=== PATIENT | female | born 1960 | race Caucasian/White ===

== ENCOUNTER → 2018-03-17 | Outpatient (CLI) | payer BC, OTHER ==
[2018-03-17 09:37] LABS: BASOPHILS % (AUTO) 0.4 % (0-1); EOSINOPHILS # (AUTO) 0.3 X10'3 (0-0.9); EOSINOPHILS % (AUTO) 4.3 % (0-6); HEMATOCRIT 40.5 % (35.0-45.0); HEMOGLOBIN 13.7 g/dl (12.0-16.0); LYMPHOCYTES # (AUTO) 2.1 X10'3 (1.1-4.8); LYMPHOCYTES % (AUTO) 29.5 % (21-51); MEAN CORPUSCULAR HEMOGLOBIN 30.6 PG (27.0-31.0); MEAN CORPUSCULAR VOLUME 90.1 FL (78-98); MEAN PLATELET VOLUME 6.5 FL (7.4-10.4); MONOCYTES # (AUTO) 0.5 X10'3 (0-0.9); MONOCYTES % (AUTO) 7.1 % (2-12); NEUTROPHILS # (AUTO) 4.1 X10'3 (1.8-7.7); NEUTROPHILS % (AUTO) 58.7 % (42-75); PLATELET COUNT 322 X10'3 (140-440); RED BLOOD COUNT 4.49 X10'6 (4.20-5.60); RED CELL DISTRIBUTION WIDTH 15.9 % (11.5-14.5)
[2018-03-17 10:10] LABS: ALANINE AMINOTRANSFERASE 53 U/L (12-78); ALBUMIN 3.6 G/DL (3.4-5.0); ALBUMIN/GLOBULIN RATIO 0.9 (1.1-1.5); ALKALINE PHOSPHATASE 83 IU/L (46-116); ANION GAP 8 (8-16); ASPARTATE AMINO TRANSFERASE 25 U/L (10-37); BILIRUBIN,TOTAL 0.3 MG/DL (0.1-1.0); BLOOD UREA NITROGEN 13 MG/DL (7-18); BUN/CREATININE RATIO 14.3 (6.6-38.0); CALCIUM 9.1 MG/DL (8.5-10.1); CHLORIDE 106 MMOL/L (99-107); CHOL/HDL RATIO 3.4 (0.00-4.99); CHOLESTEROL 259 MG/DL (0-200); CREATININE 0.91 MG/DL (0.40-0.90); GLUCOSE 99 MG/DL (70-104); HDL CHOLESTEROL 76 MG/DL (35-60); LDL CHOLESTEROL 158 MG/DL (50-100); POTASSIUM 4.4 MMOL/L (3.5-5.1); SODIUM 142 MMOL/L (135-145); TOTAL CARBON DIOXIDE 28.4 MMOL/L (24-32); TOTAL PROTEIN 7.4 G/DL (6.4-8.2); TRIGLYCERIDES 80 MG/DL (20-135); eGFR 64 ML/MIN
== END ==
LOC: LAB 09:10
PROVIDERS: ATTEND Family Medicine
DX: Z00.01 Encounter for general adult medical examination with abnormal findings (principal); R79.89 Other specified abnormal findings of blood chemistry
CPT/HCPCS: 36415; 80053; 80061; 84439; 84443; 85025

== ENCOUNTER 2018-03-23 09:20 | Day surgery (SDC) | payer BC ==
[~2018-03-23] VITALS: Ht 167.6 cm; Wt 68.2 kg
[2018-03-23 09:30] VITALS: BP 124/82
[2018-03-23] MEDS ORDERED: BLOO-292 PO (09:55)
[2018-03-23] MEDS ORDERED: PRESTIGE PO (10:14)
[2018-03-23] MEDS ORDERED: DESV100T4 PO (10:18)
[2018-03-23] MEDS ORDERED: fentaNYL/PF 50MCG/1 ML 2ML syringe ONE (10:37)
[2018-03-23] MEDS ORDERED: MIDAZolam 5mg/5ml vial ONE (10:38)
[2018-03-23 11:06] VITALS: BP 94/62
[2018-03-23 11:15] VITALS: BP 95/63
[2018-03-23 11:25] VITALS: BP 100/61
[2018-03-23 11:35] VITALS: BP 95/60
== END 2018-03-23 11:45 | disposition home or self-care (01) ==
LOC: GI LAB 09:20
PROVIDERS: ATTEND Internal Medicine Gastroenterology
DX: Z12.11 Encounter for screening for malignant neoplasm of colon (principal); Z80.0 Family history of malignant neoplasm of digestive organs; Z98.51 Tubal ligation status; Z98.890 Other specified postprocedural states; Z79.899 Other long term (current) drug therapy
CPT/HCPCS: 45378; 99152; 99153; J2250; J3010; J7030; A4620; G0500

== ENCOUNTER → 2019-04-20 | Outpatient (CLI) | payer BC, OTHER ==
[~2019-04-20] MED LIST: DESV100T4 PO
[2019-04-20 13:43] LABS: ALANINE AMINOTRANSFERASE 28 U/L (12-78); ALBUMIN 4.1 G/DL (3.4-5.0); ALBUMIN/GLOBULIN RATIO 1.1 (1.1-1.5); ALKALINE PHOSPHATASE 92 IU/L (46-116); ANION GAP 17 (8-16); ASPARTATE AMINO TRANSFERASE 21 U/L (10-37); BILIRUBIN,TOTAL 0.5 MG/DL (0.1-1.0); BLOOD UREA NITROGEN 14 MG/DL (7-18); BUN/CREATININE RATIO 15.2 (6.6-38.0); CALCIUM 9.9 MG/DL (8.5-10.1); CHLORIDE 99 MMOL/L (99-107); CREATININE 0.92 MG/DL (0.40-0.90); GLUCOSE 64 MG/DL (70-104); POTASSIUM 3.9 MMOL/L (3.5-5.1); SODIUM 135 MMOL/L (135-145); TOTAL CARBON DIOXIDE 18.9 MMOL/L (24-32); eGFR 63 ML/MIN
[2019-04-23 05:30] LABS: VITAMIN D, 25-HYDROXY 27.8 ng/mL (30.0-100.0)
== END | disposition home or self-care (01) ==
LOC: LAB 12:06
PROVIDERS: ATTEND Family Medicine
DX: Z00.00 Encounter for general adult medical examination without abnormal findings (principal)
CPT/HCPCS: 36415; 80053; 82306; 82607; 82746; 84439; 84443

== ENCOUNTER 2019-11-02 10:31 | Outpatient (CLI) | payer OTHER ==
[2019-11-02 11:41] LABS: BASOPHILS # (AUTO) 0.1 X10'3 (0-0.2); BASOPHILS % (AUTO) 0.7 % (0-1); EOSINOPHILS # (AUTO) 0.2 X10'3 (0-0.9); EOSINOPHILS % (AUTO) 2.4 % (0-6); HEMATOCRIT 40.8 % (35.0-45.0); HEMOGLOBIN 13.9 g/dl (12.0-16.0); LYMPHOCYTES % (AUTO) 24.5 % (21-51); MEAN CORPUSCULAR HEMOGLOBIN 31.9 PG (27.0-31.0); MEAN CORPUSCULAR HGB CONC 34.1 g/dL (33.0-36.5); MEAN CORPUSCULAR VOLUME 93.4 FL (78-98); MEAN PLATELET VOLUME 6.8 FL (7.4-10.4); MONOCYTES # (AUTO) 0.5 X10'3 (0-0.9); MONOCYTES % (AUTO) 6.5 % (2-12); NEUTROPHILS # (AUTO) 5.4 X10'3 (1.8-7.7); NEUTROPHILS % (AUTO) 65.9 % (42-75); PLATELET COUNT 332 X10'3 (140-440); RED BLOOD COUNT 4.37 X10'6 (4.20-5.60); RED CELL DISTRIBUTION WIDTH 13.4 % (11.5-14.5); WHITE BLOOD COUNT 8.1 X10'3 (4.5-11.0)
[2019-11-02 12:10] LABS: ALANINE AMINOTRANSFERASE 29 U/L (12-78); ALBUMIN 3.6 G/DL (3.4-5.0); ALBUMIN/GLOBULIN RATIO 0.9 (1.1-1.5); ALKALINE PHOSPHATASE 90 IU/L (46-116); ANION GAP 9 (8-16); ASPARTATE AMINO TRANSFERASE 22 U/L (10-37); BILIRUBIN,TOTAL 0.4 MG/DL (0.1-1.0); BLOOD UREA NITROGEN 19 MG/DL (7-18); BUN/CREATININE RATIO 21.8 (6.6-38.0); CHLORIDE 102 MMOL/L (99-107); CHOLESTEROL 239 MG/DL (0-200); CREATININE 0.87 MG/DL (0.40-0.90); GLUCOSE 92 MG/DL (70-104); HDL CHOLESTEROL 79 MG/DL (35-60); LDL CHOLESTEROL 153 MG/DL (50-100); POTASSIUM 3.9 MMOL/L (3.5-5.1); SODIUM 137 MMOL/L (135-145); TOTAL CARBON DIOXIDE 26.1 MMOL/L (24-32); TOTAL PROTEIN 7.7 G/DL (6.4-8.2); TRIGLYCERIDES 75 MG/DL (20-135); eGFR 67 ML/MIN
[2019-11-02 12:30] LABS: CLARITY,URINE CLOUDY (Clear); COLOR,URINE YELLOW (Yellow); GLUCOSE, URINE NEGATIVE (Neg); KETONES,URINE NEGATIVE (Neg); LEUKOCYTE ESTERASE ,URINE LARGE (Neg); NITRITES, URINE NEGATIVE (Neg); OCCULT BLOOD,URINE LARGE (Neg); PROTEIN,URINE 100 mg/dl (Neg); UROBILINOGEN,URINE 0.2 E.U/dL (0.2-1.0)
[2019-11-02 12:45] LABS: UA COLLECTION TYPE NON-SPECIFIED
[2019-11-02 12:46] LABS: BACTERIA,URINE 1+ /HPF (Neg); WBC,URINE TNTC /HPF (0-4)
[2019-11-02 12:47] LABS: MUCUS STRANDS NONE SEEN /LPF (Neg); SQUAMOUS EPITHELIAL CELL,UR FEW /LPF (FEW); WBC CLUMPS,URINE MANY /HPF (NEGATIVE)
[2019-11-03 08:09] LABS: THYROXINE (T4) 5.9 ug/dL (4.5-12.0); VITAMIN D, 25-HYDROXY 21.8 ng/mL (30.0-100.0)
== END 2019-11-02 23:59 | disposition home or self-care (01) ==
LOC: LAB 10:31
PROVIDERS: ATTEND Family Medicine
DX: L65.9 Nonscarring hair loss, unspecified (principal)
CPT/HCPCS: 36415; 80053; 80061; 81001; 82306; 82607; 82746; 84436; 84443; 85025; 87077; 87088; 87186

== ENCOUNTER 2019-12-28 11:34 | Outpatient (CLI) | payer OTHER ==
[2019-12-28 12:52] LABS: BASOPHILS % (AUTO) 0.3 % (0-1); EOSINOPHILS # (AUTO) 1.5 X10'3 (0-0.9); EOSINOPHILS % (AUTO) 10.6 % (0-6); HEMATOCRIT 40.6 % (35.0-45.0); HEMOGLOBIN 13.6 g/dl (12.0-16.0); LYMPHOCYTES # (AUTO) 0.9 X10'3 (1.1-4.8); LYMPHOCYTES % (AUTO) 6.3 % (21-51); MEAN CORPUSCULAR HEMOGLOBIN 30.5 PG (27.0-31.0); MEAN CORPUSCULAR HGB CONC 33.4 g/dL (33.0-36.5); MEAN CORPUSCULAR VOLUME 91.4 FL (78-98); MEAN PLATELET VOLUME 7.1 FL (7.4-10.4); MONOCYTES # (AUTO) 0.7 X10'3 (0-0.9); MONOCYTES % (AUTO) 5.2 % (2-12); NEUTROPHILS # (AUTO) 10.9 X10'3 (1.8-7.7); NEUTROPHILS % (AUTO) 77.6 % (42-75); PLATELET COUNT 342 X10'3 (140-440); RED BLOOD COUNT 4.44 X10'6 (4.20-5.60); RED CELL DISTRIBUTION WIDTH 14.1 % (11.5-14.5)
== END 2019-12-28 23:59 | disposition home or self-care (01) ==
LOC: LAB 11:34
PROVIDERS: ATTEND Family Medicine
DX: N39.0 Urinary tract infection, site not specified (principal)
CPT/HCPCS: 36415; 85025

== ENCOUNTER 2020-05-07 03:13 | Emergency (ER) | payer OTHER ==
[~2020-05-07] VITALS: Ht 167.6 cm; Wt 82.0 kg
[2020-05-07 03:22] VITALS: BP 147/84
[2020-05-07 03:27] LABS: CLARITY,URINE CLOUDY (Clear); COLOR,URINE YELLOW (Yellow); GLUCOSE, URINE NEGATIVE (Neg); KETONES,URINE NEGATIVE (Neg); LEUKOCYTE ESTERASE ,URINE MODERATE (Neg); NITRITES, URINE NEGATIVE (Neg); OCCULT BLOOD,URINE LARGE (Neg); PROTEIN,URINE 30 mg/dl (Neg); UROBILINOGEN,URINE 0.2 E.U/dL (0.2-1.0)
[2020-05-07 03:30] LABS: UA COLLECTION TYPE CLN CATCH MIDSTREAM
[2020-05-07] MEDS ORDERED: ciprofloxacin 250mg tablet PO ONE (03:30)
[2020-05-07 03:32] LABS: BACTERIA,URINE 4+ /HPF (Neg); RBC,URINE 20-50 /HPF (0-2); SQUAMOUS EPITHELIAL CELL,UR FEW /LPF (FEW); WBC,URINE TNTC /HPF (0-4)
[2020-05-07] MEDS ORDERED: CIPR-230 PO (03:33)
== END 2020-05-07 05:22 | disposition home or self-care (01) ==
LOC: ER 03:13
DX: N39.0 Urinary tract infection, site not specified (principal); R39.15 Urgency of urination; K21.9 Gastro-esophageal reflux disease without esophagitis; Z87.440 Personal history of urinary (tract) infections; Z79.2 Long term (current) use of antibiotics; Z79.899 Other long term (current) drug therapy
CPT/HCPCS: 81001; 87088; 99283

== ENCOUNTER 2020-08-20 17:31 | Emergency (ER) | payer BC ==
[~2020-08-20] VITALS: Ht 167.6 cm; Wt 84.1 kg
[2020-08-20 18:36] VITALS: BP 125/82
--- NOTE | 2020-08-20 18:44 | NUR ---
Chest x-ray completed. Swab for COVID will be collected as soon as ordered.
== END 2020-08-20 19:20 | disposition home or self-care (01) ==
LOC: ER 17:32
DX: R50.9 Fever, unspecified (principal); R05 Cough; J02.9 Acute pharyngitis, unspecified; Z20.828 Contact with and (suspected) exposure to other viral communicable diseases; K21.9 Gastro-esophageal reflux disease without esophagitis; Z87.440 Personal history of urinary (tract) infections; Z79.899 Other long term (current) drug therapy
CPT/HCPCS: 71045; 87635; 99284; C9803

== ENCOUNTER 2020-12-13 20:30 | Emergency (ER) | payer BC ==
[~2020-12-13] VITALS: Ht 167.6 cm; Wt 86.4 kg
[2020-12-13] MEDS ORDERED: iohexol 300mg/ml 100ml inj. ONE (20:56)
[2020-12-13] MEDS ORDERED: ondansetron 4mg rapidly disintigrating tab PO ONE (22:35)
[2020-12-14] MEDS ORDERED: HYDR-3965 PO ×2 (00:01→16:06)
[2020-12-14] MEDS ORDERED: ONDA4TAB6 PO ×2 (00:01→16:06)
[2020-12-14 00:23] VITALS: BP 136/75
== END 2020-12-14 00:25 | disposition home or self-care (01) ==
LOC: ER 20:31
DX: S22.080A Wedge compression fracture of T11-T12 vertebra, initial encounter for closed fracture (principal); R11.0 Nausea; R06.02 Shortness of breath; Z79.899 Other long term (current) drug therapy; W22.8XXA Striking against or struck by other objects, initial encounter; Y93.23 Activity, snow (alpine) (downhill) skiing, snowboarding, sledding, tobogganing and snow tubing; Y92.89 Other specified places as the place of occurrence of the external cause; Y99.8 Other external cause status
CPT/HCPCS: 71260; 74177; 99285; Q9967

== ENCOUNTER 2020-12-16 19:34 | Emergency (ER) | payer BC ==
[~2020-12-16] VITALS: Ht 167.6 cm; Wt 85.5 kg
[~2020-12-16 19:34] MED LIST changes: +HYDR-3965 PO; +ONDA4TAB6 PO
[2020-12-16 20:32] LABS: D-DIMER 2.29 MG/L FEU (0-0.50)
[2020-12-16] MEDS ORDERED: iohexol 350MG/ML 100ml bottle IV ONE (20:55)
--- NOTE | 2020-12-16 22:26 | NUR ---
dr villalba talking with pt about dc instructions. Pt is agreeable to DC.
[2020-12-16 22:27] VITALS: BP 116/87
== END 2020-12-16 22:33 | disposition home or self-care (01) ==
LOC: ER 19:35
DX: R07.89 Other chest pain (principal); R91.1 Solitary pulmonary nodule; J90 Pleural effusion, not elsewhere classified; Z79.899 Other long term (current) drug therapy
CPT/HCPCS: 36415; 71045; 71275; 85379; 93005; 99285; Q9967

== ENCOUNTER 2021-02-04 04:31 | Emergency (ER) | payer BC ==
[~2021-02-04] VITALS: Ht 167.6 cm; Wt 80.5 kg
[2021-02-04 04:33] VITALS: BP 130/86
[2021-02-04] MEDS ORDERED: ketorolac tromethamine 15mg/ml inj. IV ONE (04:40)
[2021-02-04] MEDS ORDERED: CefTRIAXone/D5W-Rocephin 1gm 50 ML IV ONE (04:40)
[2021-02-04] MEDS ORDERED: normal saline 1000ML IV soln IVB ONE (04:40)
[2021-02-04] MEDS ORDERED: DESV50TA9 PO (04:45)
[2021-02-04] MEDS ORDERED: NITR100C6 PO (04:45)
[2021-02-04] MEDS ORDERED: OMEP40CA13 PO (04:45)
[2021-02-04 05:33] LABS: CLARITY,URINE CLOUDY (Clear); COLOR,URINE ORANGE (Yellow); UA COLLECTION TYPE NON-SPECIFIED
[2021-02-04 05:33] LABS: BASOPHILS # (AUTO) 0.1 X10'3 (0-0.2); BASOPHILS % (AUTO) 0.4 % (0-1); EOSINOPHILS # (AUTO) 0.1 X10'3 (0-0.9); EOSINOPHILS % (AUTO) 0.6 % (0-6); HEMATOCRIT 40.2 % (35.0-45.0); HEMOGLOBIN 13.1 g/dl (12.0-16.0); LYMPHOCYTES # (AUTO) 0.8 X10'3 (1.1-4.8); MEAN CORPUSCULAR HEMOGLOBIN 29.5 PG (27.0-31.0); MEAN CORPUSCULAR HGB CONC 32.5 g/dL (33.0-36.5); MEAN CORPUSCULAR VOLUME 90.7 FL (78-98); MEAN PLATELET VOLUME 7.2 FL (7.4-10.4); MONOCYTES # (AUTO) 0.7 X10'3 (0-0.9); MONOCYTES % (AUTO) 4.1 % (2-12); NEUTROPHILS # (AUTO) 14.8 X10'3 (1.8-7.7); NEUTROPHILS % (AUTO) 89.9 % (42-75); PLATELET COUNT 407 X10'3 (140-440); RED BLOOD COUNT 4.43 X10'6 (4.20-5.60); WHITE BLOOD COUNT 16.4 X10'3 (4.5-11.0)
[2021-02-04 05:55] LABS: BACTERIA,URINE 1+ /HPF (Neg); RBC,URINE 0-2 /HPF (0-2); SQUAMOUS EPITHELIAL CELL,UR MANY /LPF (FEW); WBC,URINE 50-100 /HPF (0-4)
[2021-02-04 05:56] LABS: MUCUS STRANDS NONE SEEN /LPF (Neg)
[2021-02-04] MEDS ORDERED: CEPH250T PO (06:00)
[2021-02-04 06:21] LABS: ALANINE AMINOTRANSFERASE 31 U/L (12-78); ALBUMIN 3.6 G/DL (3.4-5.0); ALKALINE PHOSPHATASE 101 IU/L (46-116); ANION GAP 12 (8-16); ASPARTATE AMINO TRANSFERASE 18 U/L (10-37); BILIRUBIN,TOTAL 0.3 MG/DL (0.1-1.0); BLOOD UREA NITROGEN 17 MG/DL (7-18); BUN/CREATININE RATIO 17.9 (6.6-38.0); CALCIUM 8.9 MG/DL (8.5-10.1); CHLORIDE 104 MMOL/L (99-107); CREATININE 0.95 MG/DL (0.40-0.90); GLUCOSE 155 MG/DL (70-104); POTASSIUM 3.9 MMOL/L (3.5-5.1); SODIUM 141 MMOL/L (135-145); TOTAL CARBON DIOXIDE 25.2 MMOL/L (24-32); TOTAL PROTEIN 7.2 G/DL (6.4-8.2); eGFR 60 ML/MIN
== END 2021-02-04 06:40 | disposition home or self-care (01) ==
LOC: ER 04:32
DX: N39.0 Urinary tract infection, site not specified (principal); R30.9 Painful micturition, unspecified; R50.9 Fever, unspecified; M54.5 Low back pain; R31.9 Hematuria, unspecified; Z87.440 Personal history of urinary (tract) infections; Z79.899 Other long term (current) drug therapy
CPT/HCPCS: 36415; 80053; 81001; 83605; 84145; 85025; 87040; 96365; 96375; 99284; J0696; J1885; J7030

== ENCOUNTER 2021-02-04 16:05 | Inpatient (IN) | payer BC ==
[~2021-02-04] VITALS: Ht 167.6 cm; Wt 85.9 kg
[~2021-02-04 16:05] MED LIST changes: +CEPH250T PO; +DESV50TA9 PO; +NITR100C6 PO; +OMEP40CA13 PO
[2021-02-04] MEDS ORDERED: normal saline 1000ML IV soln IV ONE (16:35)
[2021-02-04] MEDS ORDERED: ketorolac tromethamine 15mg/ml inj. IV ONE (16:50)
[2021-02-04] MEDS ORDERED: acetaminophen 325mg tablet PO ONE (16:50)
[2021-02-04 17:08] LABS: URINE HCG NEGATIVE (NEG)
[2021-02-04 17:19] LABS: BASOPHILS % (AUTO) 0.1 % (0-1); EOSINOPHILS # (AUTO) 0.2 X10'3 (0-0.9); EOSINOPHILS % (AUTO) 1.7 % (0-6); HEMOGLOBIN 12.5 g/dl (12.0-16.0); LYMPHOCYTES # (AUTO) 0.5 X10'3 (1.1-4.8); LYMPHOCYTES % (AUTO) 3.4 % (21-51); MEAN CORPUSCULAR HEMOGLOBIN 29.7 PG (27.0-31.0); MEAN PLATELET VOLUME 6.8 FL (7.4-10.4); MONOCYTES # (AUTO) 0.4 X10'3 (0-0.9); MONOCYTES % (AUTO) 2.5 % (2-12); NEUTROPHILS # (AUTO) 13.3 X10'3 (1.8-7.7); NEUTROPHILS % (AUTO) 92.3 % (42-75); PLATELET COUNT 312 X10'3 (140-440); RED BLOOD COUNT 4.22 X10'6 (4.20-5.60); RED CELL DISTRIBUTION WIDTH 14.8 % (11.5-14.5); WHITE BLOOD COUNT 14.4 X10'3 (4.5-11.0)
[2021-02-04 17:27] LABS: ALANINE AMINOTRANSFERASE 32 U/L (12-78); ALKALINE PHOSPHATASE 105 IU/L (46-116); ANION GAP 11 (8-16); ASPARTATE AMINO TRANSFERASE 18 U/L (10-37); BILIRUBIN,TOTAL 0.6 MG/DL (0.1-1.0); BLOOD UREA NITROGEN 13 MG/DL (7-18); BUN/CREATININE RATIO 14.3 (6.6-38.0); CALCIUM 9.4 MG/DL (8.5-10.1); CHLORIDE 104 MMOL/L (99-107); CREATININE 0.91 MG/DL (0.40-0.90); GLUCOSE 125 MG/DL (70-104); MAGNESIUM 1.9 MG/DL (1.5-2.4); POTASSIUM 3.6 MMOL/L (3.5-5.1); SODIUM 140 MMOL/L (135-145); TOTAL CARBON DIOXIDE 25.1 MMOL/L (24-32); eGFR 63 ML/MIN
[2021-02-04 17:33] LABS: CLARITY,URINE SLIGHTLY CLOUDY (Clear); COLOR,URINE YELLOW (Yellow); GLUCOSE, URINE NEGATIVE (Neg); KETONES,URINE NEGATIVE (Neg); LEUKOCYTE ESTERASE ,URINE TRACE (Neg); NITRITES, URINE NEGATIVE (Neg); OCCULT BLOOD,URINE NEGATIVE (Neg); PROTEIN,URINE NEGATIVE (Neg); UROBILINOGEN,URINE 0.2 E.U/dL (0.2-1.0)
[2021-02-04 17:51] LABS: UA COLLECTION TYPE CLN CATCH MIDSTREAM
[2021-02-04 17:52] LABS: SQUAMOUS EPITHELIAL CELL,UR MANY /LPF (FEW)
[2021-02-04 17:53] LABS: BACTERIA,URINE FEW /HPF (Neg); RBC,URINE 0-2 /HPF (0-2); WBC,URINE 0-4 /HPF (0-4)
[2021-02-04] MEDS ORDERED: iohexol 350MG/ML 100ml bottle IV ONE (18:03)
[2021-02-04 20:47] LABS: GLUCOSE,CSF 72 MG/DL (40-75)
[2021-02-04 20:51] LABS: TOTAL PROTEIN,CSF 30 MG/DL (15-45)
[2021-02-04 20:53] LABS: APPEARANCE,CSF CLEAR; CSF SUPERNATANT COLOR COLORLESS; CSF VOLUME 6.5 ML; TUBE# COUNTED 1
[2021-02-04 20:54] LABS: CSF RBC 3 /CU MM (0)
[2021-02-04 20:55] LABS: CSF WBC CT 2 /CU MM (0-5)
[2021-02-04 20:57] LABS: APPEARANCE,CSF CLEAR; CSF SUPERNATANT COLOR COLORLESS; CSF VOLUME 6.5 ML; TUBE# COUNTED 4
[2021-02-04 20:58] LABS: CSF RBC 0 /CU MM (0); CSF WBC CT 2 /CU MM (0-5)
[2021-02-04] MEDS ORDERED: potassium Cl 20 mEq SR tablet PO PRN ×2 (21:20)
[2021-02-04] MEDS ORDERED: magnesium 4gm in 100ml NS 100 ML IV PRN (21:20)
[2021-02-04] MEDS ORDERED: magnesium Cl slow-release 64mg tablet PO PRN (21:20)
[2021-02-04] MEDS ORDERED: magnesium 2GM in 50ml NS 50 ML IV PRN (21:20)
[2021-02-04] MEDS ORDERED: potassium Cl 40MEQ/1/2NS 520ml 520 ML IV PRN ×2 (21:20)
[2021-02-04] MEDS: normal saline 1000ml 1,000 ML IV SCH (21:29)
[2021-02-04 22:30] VITALS: BP 114/66
--- NOTE | 2021-02-04 22:30 | NUR ---
I have received report from Bhupendra GARRETT by telephone from ER and had the opportunity to ask questions and assume patient care once on the unit.
[2021-02-05] MEDS: ondansetron/PF 4mg/2ml inj IV PRN ×2 (00:05→21:19)
--- NOTE | 2021-02-05 00:14 | NUR ---
Med orders PAGER ID: [phone] MESSAGE: [id number] Ela Wray: Patient's temperature is 101.7 F and no Tylenol is ordered. Can I put in the order for Tylenol (pain and temp) and Maalox as discussed earlier? torsten GARRETT [id number]
[2021-02-05] MEDS ORDERED: mag hydrox/Alum hydrox/simeth 30ml oral suspension PO ONE (00:25)
[2021-02-05] MEDS ORDERED: acetaminophen 325mg tablet PO PRN (00:25)
--- NOTE | 2021-02-05 01:18 | NUR ---
Tylenol not effective PAGER ID: [phone] MESSAGE: [id number] Ela Wray: Tylenol was not effective, temperature now 102.5F, can I get an order for Motrin and start IV abx Rocephin now? Kim GARRETT [id number] MD Canela gave order for Motrin 600mg now and to start Rocephin early.
[2021-02-05] MEDS ORDERED: ibuprofen 200mg tablet PO ONE (01:20)
[2021-02-05] MEDS ORDERED: CefTRIAXone/D5W-Rocephin 1gm 50 ML IV ONE (01:20)
--- NOTE | 2021-02-05 01:24 | NUR ---
Cathi Canela wanted Rocephin early, one time dose of Rocephin is to be given now and okay for next dose to be in AM per Pharmacy.
[2021-02-05 02:00] VITALS: BP 110/61
--- NOTE | 2021-02-05 06:08 | NUR ---
Problems reprioritized. Patient report given, questions answered & plan of care reviewed with Keyonna GARRETT.
--- NOTE | 2021-02-05 06:11 | NUR ---
Patient in room PCU 3013. I have received report from GERRY Alvarez and had the opportunity to ask questions and assume patient care.
[2021-02-05 06:44] LABS: BASOPHILS % (AUTO) 0.1 % (0-1); EOSINOPHILS # (AUTO) 0.3 X10'3 (0-0.9); EOSINOPHILS % (AUTO) 3.3 % (0-6); HEMATOCRIT 33.3 % (35.0-45.0); HEMOGLOBIN 10.9 g/dl (12.0-16.0); LYMPHOCYTES # (AUTO) 0.6 X10'3 (1.1-4.8); LYMPHOCYTES % (AUTO) 7.3 % (21-51); MEAN CORPUSCULAR HEMOGLOBIN 30.2 PG (27.0-31.0); MEAN CORPUSCULAR HGB CONC 32.8 g/dL (33.0-36.5); MEAN CORPUSCULAR VOLUME 91.8 FL (78-98); MEAN PLATELET VOLUME 6.7 FL (7.4-10.4); MONOCYTES # (AUTO) 0.3 X10'3 (0-0.9); MONOCYTES % (AUTO) 3.6 % (2-12); NEUTROPHILS # (AUTO) 7.4 X10'3 (1.8-7.7); NEUTROPHILS % (AUTO) 85.7 % (42-75); PLATELET COUNT 249 X10'3 (140-440); RED BLOOD COUNT 3.63 X10'6 (4.20-5.60); RED CELL DISTRIBUTION WIDTH 14.9 % (11.5-14.5); WHITE BLOOD COUNT 8.6 X10'3 (4.5-11.0)
[2021-02-05 06:59] LABS: ALBUMIN 2.9 G/DL (3.4-5.0); ANION GAP 6 (8-16); BLOOD UREA NITROGEN 9 MG/DL (7-18); BUN/CREATININE RATIO 11.8 (6.6-38.0); CALCIUM 8.9 MG/DL (8.5-10.1); CHLORIDE 110 MMOL/L (99-107); CREATININE 0.76 MG/DL (0.40-0.90); GLUCOSE 105 MG/DL (70-104); MAGNESIUM 2.2 MG/DL (1.5-2.4); POTASSIUM 3.9 MMOL/L (3.5-5.1); SODIUM 142 MMOL/L (135-145); TOTAL CARBON DIOXIDE 26.5 MMOL/L (24-32); eGFR 78 ML/MIN
[2021-02-05 08:00] VITALS: BP 98/61
[2021-02-05] MEDS ORDERED: CefTRIAXone/D5W-Rocephin 1gm 50 ML IV SCH (08:00)
[2021-02-05] MEDS: K and/or MAG REPLACEMENT MC SCH ×2 (08:00→20:00)
[2021-02-05] MEDS ORDERED: ciprofloxacin lact 400MG/200ML 200 ML IV ONE (08:25)
[2021-02-05] MEDS: normal saline 1000ml 1,000 ML IV SCH ×2 (08:26→17:32)
--- NOTE | 2021-02-05 10:39 | NUR ---
Paged Dr Webb PAGER ID: [phone] MESSAGE: Ela Blair [id number] Pt would like Omeprazole started. She has acid reflex. Thank you Keyonna Lozoya [phone]
[2021-02-05 11:00] VITALS: BP 100/56
[2021-02-05] MEDS: pantoprazole 40mg Tablet.DR PO SCH (11:01)
[2021-02-05 11:19] LABS: CLARITY,URINE SLIGHTLY CLOUDY (Clear); COLOR,URINE YELLOW (Yellow); GLUCOSE, URINE NEGATIVE (Neg); KETONES,URINE NEGATIVE (Neg); LEUKOCYTE ESTERASE ,URINE SMALL (Neg); NITRITES, URINE NEGATIVE (Neg); OCCULT BLOOD,URINE NEGATIVE (Neg); PH,URINE 6.5 (4.8-8.0); PROTEIN,URINE TRACE mg/dl (Neg); UA COLLECTION TYPE CLN CATCH MIDSTREAM; UROBILINOGEN,URINE 0.2 E.U/dL (0.2-1.0)
[2021-02-05] MEDS: acetaminophen 325mg tablet PO PRN ×2 (11:19→22:54)
[2021-02-05 11:38] LABS: RBC,URINE 0-2 /HPF (0-2)
[2021-02-05 11:39] LABS: BACTERIA,URINE FEW /HPF (Neg)
[2021-02-05 11:41] LABS: HYALINE CASTS 0-3 /LPF (NEGATIVE)
[2021-02-05 11:46] LABS: TRANSITIONAL EPI CELLS,URINE MODERATE /HPF
[2021-02-05 11:47] LABS: MUCUS STRANDS MANY /LPF (Neg); SQUAMOUS EPITHELIAL CELL,UR MANY /LPF (FEW); WBC,URINE 30-50 /HPF (0-4)
[2021-02-05] MEDS: venlafaxine 25mg tablet PO SCH ×2 (13:26→20:22)
[2021-02-05 15:00] VITALS: BP 130/68
[2021-02-05] MEDS: metroNIDAZOLE-Flagyl 500mg/NS 100 ML IV SCH (17:12)
[2021-02-05 19:35] VITALS: BP 108/65
[2021-02-05] MEDS: lactobacillus rhamnosus 10,000 MMU CELLS/CAPSULE PO SCH (20:22)
[2021-02-05] MEDS: ciprofloxacin lact 400MG/200ML 200 ML IV SCH (20:22)
[2021-02-05 22:00] VITALS: BP 113/56
[2021-02-05] MEDS ORDERED: mag hydrox/Alum hydrox/simeth 30ml oral suspension PO PRN (23:20)
[2021-02-06] MEDS: metroNIDAZOLE-Flagyl 500mg/NS 100 ML IV SCH ×2 (00:30→11:54)
[2021-02-06 02:00] VITALS: BP 102/63
[2021-02-06] MEDS: normal saline 1000ml 1,000 ML IV SCH (03:20)
--- NOTE | 2021-02-06 06:20 | NUR ---
Patient in room PCU 3013. I have received report from Vicky GARRETT and had the opportunity to ask questions and assume patient care. pt content in bed, no sob, CL within reach, BLL.
--- NOTE | 2021-02-06 06:26 | NUR ---
Patient in room PCU 3013. I have received report from GERRY Perry and had the opportunity to ask questions and assume patient care.
--- NOTE | 2021-02-06 06:26 | NUR ---
Problems reprioritized. Patient report given, questions answered & plan of care reviewed with GERRY Newby.
[2021-02-06 07:00] VITALS: BP 96/57
[2021-02-06] MEDS: K and/or MAG REPLACEMENT MC SCH (08:00)
[2021-02-06] MEDS ORDERED: non-formulary drug (Omeprazole (Prilosec) 1 CAP) PO SCH (08:00)
[2021-02-06 08:22] LABS: BASOPHILS % (AUTO) 0.7 % (0-1); EOSINOPHILS # (AUTO) 0.4 X10'3 (0-0.9); EOSINOPHILS % (AUTO) 8.1 % (0-6); HEMOGLOBIN 10.6 g/dl (12.0-16.0); LYMPHOCYTES # (AUTO) 1.4 X10'3 (1.1-4.8); LYMPHOCYTES % (AUTO) 30.3 % (21-51); MEAN CORPUSCULAR HEMOGLOBIN 30.1 PG (27.0-31.0); MEAN CORPUSCULAR HGB CONC 33.2 g/dL (33.0-36.5); MEAN CORPUSCULAR VOLUME 90.7 FL (78-98); MONOCYTES # (AUTO) 0.4 X10'3 (0-0.9); MONOCYTES % (AUTO) 8.5 % (2-12); NEUTROPHILS # (AUTO) 2.4 X10'3 (1.8-7.7); NEUTROPHILS % (AUTO) 52.4 % (42-75); PLATELET COUNT 250 X10'3 (140-440); RED BLOOD COUNT 3.52 X10'6 (4.20-5.60); RED CELL DISTRIBUTION WIDTH 15.3 % (11.5-14.5); WHITE BLOOD COUNT 4.6 X10'3 (4.5-11.0)
[2021-02-06 08:38] LABS: ALBUMIN 2.8 G/DL (3.4-5.0); ANION GAP 7 (8-16); BLOOD UREA NITROGEN 7 MG/DL (7-18); BUN/CREATININE RATIO 10.1 (6.6-38.0); CALCIUM 8.8 MG/DL (8.5-10.1); CHLORIDE 111 MMOL/L (99-107); CREATININE 0.69 MG/DL (0.40-0.90); GLUCOSE 88 MG/DL (70-104); MAGNESIUM 2.1 MG/DL (1.5-2.4); POTASSIUM 4.1 MMOL/L (3.5-5.1); SODIUM 144 MMOL/L (135-145); TOTAL CARBON DIOXIDE 25.8 MMOL/L (24-32); eGFR 87 ML/MIN
[2021-02-06 08:57] LABS: % IRON SATURATION 15 % (11-46); IRON 34 UG/DL (49-151); TOTAL IRON BINDING CAPACITY 230 UG/DL (259-388)
[2021-02-06] MEDS: ciprofloxacin lact 400MG/200ML 200 ML IV SCH (09:07)
[2021-02-06] MEDS: venlafaxine 25mg tablet PO SCH ×2 (09:08→13:00)
[2021-02-06] MEDS: pantoprazole 40mg Tablet.DR PO SCH (09:08)
[2021-02-06] MEDS: lactobacillus rhamnosus 10,000 MMU CELLS/CAPSULE PO SCH (09:08)
[2021-02-06] MEDS: acetaminophen 325mg tablet PO PRN (09:10)
[2021-02-06] MEDS ORDERED: CIPR-202 PO (11:14)
[2021-02-06] MEDS ORDERED: METR-159 PO (11:14)
[2021-02-06] MEDS ORDERED: iohexol 300mg/ml 100ml inj. ONE (11:53)
--- NOTE | 2021-02-06 13:45 | NUR ---
[facility] documentation: I have reviewed and agree with all interventions, assessments performed and documented by GERRY Welsh.
--- NOTE | 2021-02-06 13:45 | NUR ---
Pt is stable for discharge per MD orders. All discharge instructions reviewed with patient and all questions answered. new prescriptions sent to [facility] per pt request. PIV discontinued. cannula intact. vehicle monitor technician discontinued. belongings collected and sent with patient. Pt wheeled to lobby in w/c per request, where her step daughter was waiting in front in her private vehicle. pt without s/sx acute distress.
--- NOTE | 2021-02-06 14:54 | NUR ---
[facility] Medication Administration: For this medication-pass time frame, all medication were reviewed, dispensed, administered and documented per hospital policy by GERRY Welsh.
[2021-02-08 17:59] LABS: HSV 1 PCR Negative (Negative); HSV 2 PCR Negative (Negative)
== END 2021-02-06 14:53 | disposition home or self-care (01) | DRG 871 ==
LOC: EEVIPCON 16:06 → ER 16:06 → ED HOLD 21:20 → PCU 3S 22:53
PROVIDERS: ADMIT Internal Medicine; ATTEND Family Medicine
PROC: 009U3ZZ Drainage of Spinal Canal, Percutaneous Approach (ICD-10-PCS; principal; 2021-02-04)
PROC: B32T1ZZ Computerized Tomography (CT Scan) of Left Pulmonary Artery using Low Osmolar Contrast (ICD-10-PCS; 2021-02-04)
PROC: B3201ZZ Computerized Tomography (CT Scan) of Thoracic Aorta using Low Osmolar Contrast (ICD-10-PCS; 2021-02-04)
PROC: B32S1ZZ Computerized Tomography (CT Scan) of Right Pulmonary Artery using Low Osmolar Contrast (ICD-10-PCS; 2021-02-04)
PROC: BW281ZZ Computerized Tomography (CT Scan) of Head using Low Osmolar Contrast (ICD-10-PCS; 2021-02-06)
DX: A41.9 Sepsis, unspecified organism (principal); J96.01 Acute respiratory failure with hypoxia; N39.0 Urinary tract infection, site not specified; Z20.822 Contact with and (suspected) exposure to COVID-19; D50.9 Iron deficiency anemia, unspecified; R51.9 Headache, unspecified; K52.9 Noninfective gastroenteritis and colitis, unspecified; D64.9 Anemia, unspecified; F32.9 Major depressive disorder, single episode, unspecified; K21.9 Gastro-esophageal reflux disease without esophagitis; Z79.899 Other long term (current) drug therapy
CPT/HCPCS: 36415; 70470; 71045; 71275; 74176; 80048; 80053; 81001; 81025; 82945; 83540; 83550; 83605; 83735; 84145; 84157; 85025; 87015; 87040; 87070; 87081; 87088; 87502; 87503; 87529; 87635; 89051; 93005; 96361; 96374; 99291; C9803; G0378; J0696; J0744; J1885; J2405; J3490; J7030; Q9967

== ENCOUNTER 2021-05-27 03:35 | Outpatient (CLI) | payer BC ==
[~2021-05-27 03:35] MED LIST changes: -CEPH250T PO; +CIPR-202 PO; -DESV100T4 PO; -HYDR-3965 PO; +METR-159 PO; -NITR100C6 PO; -OMEP40CA13 PO; +OMEP40CA21 PO; -ONDA4TAB6 PO
[2021-05-27 06:55] LABS: BASOPHILS # (AUTO) 0.1 X10'3 (0-0.2); BASOPHILS % (AUTO) 1.4 % (0-1); EOSINOPHILS # (AUTO) 0.2 X10'3 (0-0.9); EOSINOPHILS % (AUTO) 2.6 % (0-6); HEMATOCRIT 43.8 % (35.0-45.0); HEMOGLOBIN 14.7 g/dl (12.0-16.0); LYMPHOCYTES # (AUTO) 1.9 X10'3 (1.1-4.8); LYMPHOCYTES % (AUTO) 30.5 % (21-51); MEAN CORPUSCULAR HEMOGLOBIN 31.8 PG (27.0-31.0); MEAN CORPUSCULAR HGB CONC 33.6 g/dL (33.0-36.5); MEAN CORPUSCULAR VOLUME 94.7 FL (78-98); MEAN PLATELET VOLUME 7.5 FL (7.4-10.4); MONOCYTES # (AUTO) 0.6 X10'3 (0-0.9); MONOCYTES % (AUTO) 10.4 % (2-12); NEUTROPHILS # (AUTO) 3.4 X10'3 (1.8-7.7); NEUTROPHILS % (AUTO) 55.1 % (42-75); PLATELET COUNT 367 X10'3 (140-440); RED BLOOD COUNT 4.63 X10'6 (4.20-5.60); RED CELL DISTRIBUTION WIDTH 14.6 % (11.5-14.5); WHITE BLOOD COUNT 6.1 X10'3 (4.5-11.0)
[2021-05-27 07:55] LABS: ALANINE AMINOTRANSFERASE 33 U/L (12-78); ALBUMIN 4.1 G/DL (3.4-5.0); ALBUMIN/GLOBULIN RATIO 1.1 (1.1-1.5); ALKALINE PHOSPHATASE 89 IU/L (46-116); ANION GAP 21 (8-16); BILIRUBIN,TOTAL 0.6 MG/DL (0.1-1.0); BLOOD UREA NITROGEN 15 MG/DL (7-18); CALCIUM 9.3 MG/DL (8.5-10.1); CHLORIDE 97 MMOL/L (99-107); CREATININE 0.79 MG/DL (0.40-0.90); GLUCOSE 64 MG/DL (70-104); SODIUM 137 MMOL/L (135-145); TOTAL CARBON DIOXIDE 18.6 MMOL/L (24-32); TOTAL PROTEIN 7.9 G/DL (6.4-8.2); eGFR 74 ML/MIN
[2021-05-27 07:59] LABS: ASPARTATE AMINO TRANSFERASE 28 U/L (10-37); POTASSIUM 4.3 MMOL/L (3.5-5.1)
== END 2021-05-27 23:59 | disposition home or self-care (01) ==
LOC: LAB 03:35
DX: R53.83 Other fatigue (principal); Z86.16 Personal history of COVID-19
CPT/HCPCS: 36415; 80053; 84439; 84443; 85025

== ENCOUNTER 2022-04-29 03:25 | Emergency (ER) | payer BC, OTHER ==
[~2022-04-29] VITALS: Ht 167.6 cm; Wt 65.9 kg
[2022-04-29 03:33] VITALS: BP 112/84
[2022-04-29] MEDS ORDERED: SULF1TAB49 PO (03:38)
== END 2022-04-29 03:49 | disposition home or self-care (01) ==
LOC: ER 03:26
DX: N39.0 Urinary tract infection, site not specified (principal); Z79.899 Other long term (current) drug therapy
CPT/HCPCS: 99283

== ENCOUNTER 2022-05-21 09:11 | Outpatient (CLI) | payer BC ==
[2022-05-21 09:57] LABS: BASOPHILS # (AUTO) 0.1 X10'3 (0-0.2); EOSINOPHILS # (AUTO) 0.4 X10'3 (0-0.9); EOSINOPHILS % (AUTO) 8.2 % (0-6); HEMATOCRIT 41.2 % (35.0-45.0); HEMOGLOBIN 13.7 g/dl (12.0-16.0); LYMPHOCYTES # (AUTO) 1.7 X10'3 (1.1-4.8); LYMPHOCYTES % (AUTO) 31.9 % (21-51); MEAN CORPUSCULAR HEMOGLOBIN 31.3 PG (27.0-31.0); MEAN CORPUSCULAR HGB CONC 33.2 g/dL (33.0-36.5); MEAN CORPUSCULAR VOLUME 94.3 FL (78-98); MEAN PLATELET VOLUME 6.8 FL (7.4-10.4); MONOCYTES # (AUTO) 0.4 X10'3 (0-0.9); NEUTROPHILS # (AUTO) 2.6 X10'3 (1.8-7.7); NEUTROPHILS % (AUTO) 50.9 % (42-75); PLATELET COUNT 289 X10'3 (140-440); RED BLOOD COUNT 4.37 X10'6 (4.20-5.60); RED CELL DISTRIBUTION WIDTH 13.7 % (11.5-14.5); WHITE BLOOD COUNT 5.2 X10'3 (4.5-11.0)
[2022-05-21 10:09] LABS: CLARITY,URINE CLEAR (Clear); COLOR,URINE YELLOW (Yellow); GLUCOSE, URINE NEGATIVE (Neg); KETONES,URINE NEGATIVE (Neg); LEUKOCYTE ESTERASE ,URINE TRACE (Neg); NITRITES, URINE NEGATIVE (Neg); OCCULT BLOOD,URINE NEGATIVE (Neg); PH,URINE 6.5 (4.8-8.0); PROTEIN,URINE NEGATIVE (Neg); UROBILINOGEN,URINE 0.2 E.U/dL (0.2-1.0)
[2022-05-21 10:12] LABS: UA COLLECTION TYPE CLN CATCH MIDSTREAM
[2022-05-21 10:20] LABS: WBC,URINE 0-4 /HPF (0-4)
[2022-05-21 10:21] LABS: BACTERIA,URINE FEW /HPF (Neg); RBC,URINE NONE SEEN /HPF (0-2); SQUAMOUS EPITHELIAL CELL,UR MANY /LPF (FEW)
[2022-05-21 10:21] LABS: ALANINE AMINOTRANSFERASE 33 U/L (12-78); ALBUMIN 3.8 G/DL (3.4-5.0); ALBUMIN/GLOBULIN RATIO 1.1 (1.1-1.5); ALKALINE PHOSPHATASE 82 IU/L (46-116); ANION GAP 8 (8-16); ASPARTATE AMINO TRANSFERASE 21 U/L (10-37); BILIRUBIN,TOTAL 0.3 MG/DL (0.1-1.0); BLOOD UREA NITROGEN 15 MG/DL (7-18); BUN/CREATININE RATIO 22.7 (6.6-38.0); CALCIUM 9.3 MG/DL (8.5-10.1); CHLORIDE 107 MMOL/L (99-107); CREATININE 0.66 MG/DL (0.40-0.90); GLUCOSE 95 MG/DL (70-104); POTASSIUM 4.3 MMOL/L (3.5-5.1); SODIUM 145 MMOL/L (135-145); TOTAL CARBON DIOXIDE 29.7 MMOL/L (24-32); TOTAL PROTEIN 7.3 G/DL (6.4-8.2); eGFR > 90 ML/MIN
[2022-05-21 10:27] LABS: CHOLESTEROL 247 MG/DL (0-200); HDL CHOLESTEROL 83 MG/DL (35-60); LDL CHOLESTEROL 143 MG/DL (50-100); TRIGLYCERIDES 51 MG/DL (20-135)
== END 2022-05-21 23:59 | disposition home or self-care (01) ==
LOC: LAB 09:11
PROVIDERS: ATTEND Family Medicine
DX: Z00.01 Encounter for general adult medical examination with abnormal findings (principal)
CPT/HCPCS: 36415; 80053; 80061; 81001; 84439; 84443; 85025

== ENCOUNTER 2022-08-04 20:57 | Emergency (ER) | payer BC ==
[~2022-08-04] VITALS: Ht 167.6 cm; Wt 70.0 kg
[2022-08-04 22:59] LABS: CLARITY,URINE CLOUDY (Clear)
[2022-08-04 23:12] LABS: COLOR,URINE ORANGE (Yellow); UA COLLECTION TYPE CLN CATCH MIDSTREAM
[2022-08-04 23:23] LABS: WBC,URINE TNTC /HPF (0-4)
[2022-08-04 23:24] LABS: BACTERIA,URINE 2+ /HPF (Neg); HYALINE CASTS 0-3 /LPF (NEGATIVE); SQUAMOUS EPITHELIAL CELL,UR FEW /LPF (FEW); WBC CLUMPS,URINE MODERATE /HPF (NEGATIVE)
[2022-08-05] MEDS ORDERED: sulfamethoxazole/trimethoprim DS (800/160mg) tablet PO ONE
[2022-08-05] MEDS ORDERED: SULF1TAB49 PO (00:02)
[2022-08-05 00:11] VITALS: BP 130/80
== END 2022-08-05 00:14 | disposition home or self-care (01) ==
LOC: ER 20:58
DX: N39.0 Urinary tract infection, site not specified (principal); Z88.1 Allergy status to other antibiotic agents; Z79.899 Other long term (current) drug therapy; Z88.8 Allergy status to other drugs, medicaments and biological substances
CPT/HCPCS: 81001; 87077; 87088; 87186; 99283

== ENCOUNTER 2022-10-26 21:48 | Emergency (ER) | payer BC, OTHER ==
[~2022-10-26] VITALS: Ht 167.6 cm; Wt 55.0 kg
[~2022-10-26 21:48] MED LIST changes: +DESV50TA PO; -DESV50TA9 PO
[2022-10-26 22:10] VITALS: BP 122/87
== END 2022-10-26 23:00 | disposition home or self-care (01) ==
LOC: ER 21:49
DX: M79.631 Pain in right forearm (principal); Z00.00 Encounter for general adult medical examination without abnormal findings
CPT/HCPCS: 99281

== ENCOUNTER 2023-03-27 00:51 | Emergency (ER) | payer BC, OTHER ==
[~2023-03-27] VITALS: Ht 167.6 cm; Wt 56.8 kg
--- NOTE | 2023-03-27 01:36 | NUR ---
Secondary complaints following fever and frequency of urination are subjective SOB, burning sub sternal chest pain which patient states is her acid reflux.. Patient is well oriented. Pulse ratae 150 sitting and standing. No drop in B/P.
--- NOTE | 2023-03-27 01:37 | NUR ---
Patient moved to bed 4, report to Modesta GARRETT.
[2023-03-27] MEDS ORDERED: acetaminophen 325mg tablet PO ONE (01:55)
[2023-03-27 01:56] LABS: URINE HCG NEGATIVE (NEG)
[2023-03-27 01:57] LABS: COLOR,URINE YELLOW (Yellow); GLUCOSE, URINE NEGATIVE (Neg); KETONES,URINE NEGATIVE (Neg); LEUKOCYTE ESTERASE ,URINE SMALL (Neg); NITRITES, URINE NEGATIVE (Neg); OCCULT BLOOD,URINE NEGATIVE (Neg); PROTEIN,URINE NEGATIVE (Neg); UROBILINOGEN,URINE 0.2 E.U/dL (0.2-1.0)
[2023-03-27 02:02] LABS: BASOPHILS % (AUTO) 0.6 % (0-1); EOSINOPHILS # (AUTO) 0.1 X10'3 (0-0.9); EOSINOPHILS % (AUTO) 1.2 % (0-6); HEMATOCRIT 36.5 % (35.0-45.0); LYMPHOCYTES # (AUTO) 0.8 X10'3 (1.1-4.8); LYMPHOCYTES % (AUTO) 11.9 % (21-51); MEAN CORPUSCULAR HEMOGLOBIN 30.1 PG (27.0-31.0); MEAN CORPUSCULAR HGB CONC 32.9 g/dL (33.0-36.5); MEAN CORPUSCULAR VOLUME 91.5 FL (78-98); MEAN PLATELET VOLUME 7.1 FL (7.4-10.4); MONOCYTES # (AUTO) 0.4 X10'3 (0-0.9); MONOCYTES % (AUTO) 6.9 % (2-12); NEUTROPHILS # (AUTO) 5.1 X10'3 (1.8-7.7); NEUTROPHILS % (AUTO) 79.4 % (42-75); PLATELET COUNT 335 X10'3 (140-440); RED BLOOD COUNT 3.99 X10'6 (4.20-5.60); RED CELL DISTRIBUTION WIDTH 14.4 % (11.5-14.5); WHITE BLOOD COUNT 6.5 X10'3 (4.5-11.0)
[2023-03-27] MEDS ORDERED: normal saline 1000ML IV soln IVB ONE (02:10)
[2023-03-27 02:13] LABS: CLARITY,URINE SLIGHTLY CLOUDY (Clear); UA COLLECTION TYPE CLN CATCH MIDSTREAM
[2023-03-27 02:14] LABS: RBC,URINE 0-2 /HPF (0-2)
[2023-03-27 02:15] LABS: BACTERIA,URINE FEW /HPF (Neg); MUCUS STRANDS FEW /LPF (Neg); SQUAMOUS EPITHELIAL CELL,UR FEW /LPF (FEW); TRANSITIONAL EPI CELLS,URINE FEW /HPF
[2023-03-27 02:19] LABS: ALANINE AMINOTRANSFERASE 20 U/L (12-78); ALBUMIN/GLOBULIN RATIO 1.1 (1.1-1.5); ALKALINE PHOSPHATASE 103 IU/L (46-116); ANION GAP 10 (8-16); ASPARTATE AMINO TRANSFERASE 14 U/L (10-37); BILIRUBIN,TOTAL 0.1 MG/DL (0.1-1.0); BLOOD UREA NITROGEN 19 MG/DL (7-18); BUN/CREATININE RATIO 22.4 (10.0-20.0); CALCIUM 8.9 MG/DL (8.5-10.1); CHLORIDE 104 MMOL/L (99-107); CREATININE 0.85 MG/DL (0.40-0.90); GLUCOSE 100 MG/DL (70-104); LIPASE 120 U/L (73-393); POTASSIUM 3.7 MMOL/L (3.5-5.1); SODIUM 139 MMOL/L (135-145); TOTAL CARBON DIOXIDE 25.2 MMOL/L (24-32); TOTAL PROTEIN 7.8 G/DL (6.4-8.2); eGFR 68 ML/MIN
[2023-03-27] MEDS ORDERED: ibuprofen 200mg tablet PO ONE (03:40)
[2023-03-27] MEDS ORDERED: CefTRIAXone/D5W-Rocephin 1gm 50 ML IV ONE (03:40)
[2023-03-27] MEDS ORDERED: SULF1TAB49 PO (03:43)
[2023-03-27 04:32] VITALS: BP 123/82
[2023-03-28] MEDS ORDERED: NIRM1TAB PO (07:04)
== END 2023-03-27 04:34 | disposition home or self-care (01) ==
LOC: ER 00:52
DX: N39.0 Urinary tract infection, site not specified (principal); R50.9 Fever, unspecified; R51.9 Headache, unspecified; Z79.899 Other long term (current) drug therapy; Z79.1 Long term (current) use of non-steroidal anti-inflammatories (NSAID); Z79.2 Long term (current) use of antibiotics
CPT/HCPCS: 36415; 71045; 80053; 81001; 81025; 83605; 83690; 84145; 85025; 87040; 87088; 93005; 96361; 96365; 99285; J0696; J7030

== ENCOUNTER 2023-03-28 02:39 | Emergency (ER) | payer BC, OTHER ==
[~2023-03-28] VITALS: Ht 167.6 cm; Wt 56.8 kg
[~2023-03-28 02:39] MED LIST changes: +SULF1TAB49 PO
[2023-03-28 02:47] VITALS: BP 134/91
[2023-03-28] MEDS ORDERED: pantoprazole 40 MG vial IV ONE (03:25)
[2023-03-28] MEDS ORDERED: normal saline 1000ML IV soln IVB ONE (03:25)
[2023-03-28] MEDS ORDERED: acetaminophen 325mg tablet PO ONE (03:25)
[2023-03-28] MEDS ORDERED: ondansetron/PF 4mg/2ml inj IV ONE (03:25)
[2023-03-28] MEDS ORDERED: levoFLOXACIN-Levaquin 750MG/D5 150 ML IV ONE (03:30)
[2023-03-28] MEDS ORDERED: pantoprazole 40MG/NS 100ML BAG 100 ML IV ONE (03:45)
[2023-03-28 04:18] LABS: ALANINE AMINOTRANSFERASE 22 U/L (12-78); ALBUMIN/GLOBULIN RATIO 1.1 (1.1-1.5); ALKALINE PHOSPHATASE 94 IU/L (46-116); ANION GAP 12 (8-16); ASPARTATE AMINO TRANSFERASE 22 U/L (10-37); BILIRUBIN,TOTAL 0.1 MG/DL (0.1-1.0); BLOOD UREA NITROGEN 18 MG/DL (7-18); CHLORIDE 105 MMOL/L (99-107); GLUCOSE 105 MG/DL (70-104); POTASSIUM 3.7 MMOL/L (3.5-5.1); SODIUM 140 MMOL/L (135-145); TOTAL CARBON DIOXIDE 23.2 MMOL/L (24-32); TOTAL PROTEIN 7.8 G/DL (6.4-8.2); eGFR 64 ML/MIN
--- NOTE | 2023-03-28 05:44 | NUR ---
isolation cart placed outide of room
[2023-03-28] MEDS ORDERED: NIRM1TAB PO (07:04)
== END 2023-03-28 06:46 | disposition home or self-care (01) ==
LOC: ER 02:40
DX: U07.1 COVID-19 (principal); R50.9 Fever, unspecified; J02.9 Acute pharyngitis, unspecified; Z79.899 Other long term (current) drug therapy
CPT/HCPCS: 36415; 80053; 83605; 84145; 87502; 87503; 87811; 96365; 96366; 96368; 96375; 99284; C9113; J1956; J2405; J7030

== ENCOUNTER 2023-05-02 23:44 | Emergency (ER) | payer BC, OTHER ==
[~2023-05-02] VITALS: Ht 167.6 cm; Wt 98.2 kg
[~2023-05-02 23:44] MED LIST changes: +NIRM1TAB PO; -SULF1TAB49 PO
[2023-05-03] MEDS ORDERED: SULF1TAB49 PO (01:30)
[2023-05-03] MEDS ORDERED: sulfamethoxazole/trimethoprim DS (800/160mg) tablet PO ONE (01:30)
[2023-05-03 02:33] VITALS: BP 126/85
== END 2023-05-03 02:34 | disposition home or self-care (01) ==
LOC: ER 23:45
DX: N39.0 Urinary tract infection, site not specified (principal)
CPT/HCPCS: 99283

== ENCOUNTER 2023-05-24 06:36 | Outpatient (CLI) | payer BC | END 2023-05-24 23:59 | disposition home or self-care (01) | LOC: LAB 06:36 | PROVIDERS: ATTEND Family Medicine | DX: N39.0 Urinary tract infection, site not specified (principal) | CPT/HCPCS: 87088 ==

== ENCOUNTER 2023-07-04 06:04 | Emergency (ER) | payer BC ==
[~2023-07-04] VITALS: Ht 167.6 cm; Wt 84.1 kg
[2023-07-04 06:10] VITALS: BP 155/83; O2SAT 97
[2023-07-04] MEDS ORDERED: ondansetron/PF 4mg/2ml inj IV ONE (06:30)
[2023-07-04] MEDS ORDERED: normal saline 1000ml 1,000 ML IV ONE ×2 (06:30→08:15)
[2023-07-04] MEDS ORDERED: ketorolac trometh. 30mg/ml inj. IV ONE (06:30)
[2023-07-04 06:34] LABS: URINE HCG NEGATIVE (NEG)
[2023-07-04] MEDS ORDERED: acetaminophen 325mg tablet PO ONE (06:40)
[2023-07-04 06:48] LABS: BILIRUBIN,URINE NEGATIVE (Neg); CLARITY,URINE CLOUDY (Clear); COLOR,URINE YELLOW (Yellow); GLUCOSE, URINE NEGATIVE (Neg); KETONES,URINE NEGATIVE (Neg); LEUKOCYTE ESTERASE ,URINE MODERATE (Neg); NITRITES, URINE POSITIVE (Neg); OCCULT BLOOD,URINE SMALL (Neg); PROTEIN,URINE 30 mg/dl (Neg); UROBILINOGEN,URINE 0.2 E.U/dL (0.2-1.0)
[2023-07-04 06:53] LABS: UA COLLECTION TYPE CLN CATCH MIDSTREAM
[2023-07-04 06:54] LABS: MUCUS STRANDS FEW /LPF (Neg); SQUAMOUS EPITHELIAL CELL,UR MODERATE /LPF (FEW); WBC CLUMPS,URINE MANY /HPF (NEGATIVE)
[2023-07-04 06:55] LABS: BACTERIA,URINE 2+ /HPF (Neg); RBC,URINE 20-50 /HPF (0-2); TRANSITIONAL EPI CELLS,URINE FEW /HPF; WBC,URINE 50-100 /HPF (0-4)
--- NOTE | 2023-07-04 07:25 | NUR ---
Patient looks sick. Not feeling well. +fever 102.8. Patient now with I.V. fluids. Reclining in bed asleep. Continue to monitor.
[2023-07-04 07:47] LABS: BASOPHILS # (AUTO) 0.1 X10'3 (0-0.2); BASOPHILS % (AUTO) 0.9 % (0-1); EOSINOPHILS # (AUTO) 0.2 X10'3 (0-0.9); EOSINOPHILS % (AUTO) 1.4 % (0-6); HEMATOCRIT 37.9 % (35.0-45.0); HEMOGLOBIN 12.5 g/dl (12.0-16.0); LYMPHOCYTES # (AUTO) 1.3 X10'3 (1.1-4.8); LYMPHOCYTES % (AUTO) 11.5 % (21-51); MEAN CORPUSCULAR HEMOGLOBIN 29.9 PG (27.0-31.0); MEAN CORPUSCULAR VOLUME 90.3 FL (78-98); MONOCYTES # (AUTO) 0.2 X10'3 (0-0.9); MONOCYTES % (AUTO) 2.2 % (2-12); NEUTROPHILS # (AUTO) 9.4 X10'3 (1.8-7.7); PLATELET COUNT 286 X10'3 (140-440); RED CELL DISTRIBUTION WIDTH 17.7 % (11.5-14.5); WHITE BLOOD COUNT 11.2 X10'3 (4.5-11.0)
[2023-07-04 08:03] LABS: ALANINE AMINOTRANSFERASE 25 U/L (12-78); ALBUMIN 3.9 G/DL (3.4-5.0); ALBUMIN/GLOBULIN RATIO 1.1 (1.1-1.5); ALKALINE PHOSPHATASE 107 IU/L (46-116); ANION GAP 11 (8-16); ASPARTATE AMINO TRANSFERASE 18 U/L (10-37); BILIRUBIN,TOTAL 0.4 MG/DL (0.1-1.0); BLOOD UREA NITROGEN 19 MG/DL (7-18); BUN/CREATININE RATIO 19.6 (10.0-20.0); CALCIUM 9.3 MG/DL (8.5-10.1); CHLORIDE 101 MMOL/L (99-107); CREATININE 0.97 MG/DL (0.40-0.90); GLUCOSE 116 MG/DL (70-104); LIPASE 60 U/L (73-393); POTASSIUM 3.8 MMOL/L (3.5-5.1); SODIUM 138 MMOL/L (135-145); TOTAL CARBON DIOXIDE 25.9 MMOL/L (24-32); TOTAL PROTEIN 7.6 G/DL (6.4-8.2); eCRCL 57 ML/MIN; eGFR 58 ML/MIN
[2023-07-04] MEDS ORDERED: CefTRIAXone/D5W-Rocephin 1gm 50 ML IV ONE (08:55)
[2023-07-04] MEDS ORDERED: CEPH-585 PO (09:04)
[2023-07-04] MEDS ORDERED: NAPR-56 PO (09:04)
[2023-07-04] MEDS ORDERED: ONDA4TAB12 PO (09:05)
--- NOTE | 2023-07-04 09:20 | NUR ---
Patient sleeping on her left side. No distress observed. Continue to monitor.
[2023-07-04 11:10] VITALS: PULSE 78; RESP 18; TEMP 98.5
== END 2023-07-04 10:40 | disposition home or self-care (01) ==
LOC: ER 06:05
DX: R50.9 Fever, unspecified (principal)
CPT/HCPCS: 36415; 74176; 80053; 81001; 81025; 83605; 83690; 85025; 87040; 87077; 87088; 87186; 96361; 96365; 96375; 99285; J0696; J1885; J2405; J7030

== ENCOUNTER 2023-11-06 01:57 | Emergency (ER) | payer BC ==
[~2023-11-06] VITALS: Ht 165.1 cm; Wt 68.2 kg
[~2023-11-06 01:57] MED LIST changes: +CEPH-585 PO; +ONDA4TAB12 PO
[2023-11-06 02:00] VITALS: BP 113/76; PULSE 90; RESP 16; TEMP 97.9; O2SAT 100
[2023-11-06 02:18] LABS: UA COLLECTION TYPE VOIDED
[2023-11-06 02:19] LABS: CLARITY,URINE SLIGHTLY CLOUDY (Clear); COLOR,URINE ORANGE (Yellow)
[2023-11-06 02:32] LABS: BACTERIA,URINE 1+ /HPF (Neg); MUCUS STRANDS FEW /LPF (Neg); SQUAMOUS EPITHELIAL CELL,UR FEW /LPF (FEW); WBC,URINE TNTC /HPF (0-4)
[2023-11-06 02:33] LABS: RENAL CELLS, URINE FEW /HPF; TRANSITIONAL EPI CELLS,URINE FEW /HPF; WBC CLUMPS,URINE FEW /HPF (NEGATIVE)
[2023-11-06] MEDS ORDERED: cephalexin 250mg capsule PO ONE (02:50)
[2023-11-06] MEDS ORDERED: CEPH250T PO (03:00)
== END 2023-11-06 03:09 | disposition home or self-care (01) ==
LOC: ER 01:57
DX: N39.0 Urinary tract infection, site not specified (principal); Z87.442 Personal history of urinary calculi; Z79.899 Other long term (current) drug therapy
CPT/HCPCS: 81001; 87077; 87088; 87186; 99283

== ENCOUNTER 2023-11-22 14:37 | Outpatient (CLI) | payer BC ==
[2023-11-22 15:55] LABS: BILIRUBIN,URINE SMALL (Neg); CLARITY,URINE SLIGHTLY CLOUDY (Clear); COLOR,URINE YELLOW (Yellow); GLUCOSE, URINE NEGATIVE (Neg); KETONES,URINE 40 mg/dl (Neg); LEUKOCYTE ESTERASE ,URINE NEGATIVE (Neg); NITRITES, URINE NEGATIVE (Neg); OCCULT BLOOD,URINE NEGATIVE (Neg); PH,URINE 6.5 (4.8-8.0); PROTEIN,URINE NEGATIVE (Neg); UROBILINOGEN,URINE 0.2 E.U/dL (0.2-1.0)
[2023-11-22 16:00] LABS: UA COLLECTION TYPE CLN CATCH MIDSTREAM
[2023-11-22 16:05] LABS: HYALINE CASTS >30 /LPF (NEGATIVE); SQUAMOUS EPITHELIAL CELL,UR MANY /LPF (FEW)
[2023-11-22 16:06] LABS: WBC,URINE 0-4 /HPF (0-4)
[2023-11-22 16:07] LABS: RBC,URINE 0-2 /HPF (0-2)
[2023-11-22 16:08] LABS: BACTERIA,URINE 1+ /HPF (Neg)
[2023-11-22 16:09] LABS: MUCUS STRANDS FEW /LPF (Neg)
== END 2023-11-22 23:59 | disposition home or self-care (01) ==
LOC: RAD 14:37
PROVIDERS: ATTEND Family Medicine
DX: N39.0 Urinary tract infection, site not specified (principal)
CPT/HCPCS: 76770; 81001

== ENCOUNTER 2023-12-05 01:21 | Emergency (ER) | payer BC ==
[~2023-12-05] VITALS: Ht 165.1 cm; Wt 65.9 kg
[2023-12-05 01:25] VITALS: BP 124/75; PULSE 136; RESP 18; TEMP 97.2; O2SAT 97
[2023-12-05] MEDS ORDERED: normal saline 1000ML IV soln IVB ONE (01:35)
[2023-12-05] MEDS ORDERED: ondansetron/PF 4mg/2ml inj IV ONE (01:35)
[2023-12-05 01:54] LABS: BASOPHILS # (AUTO) 0.1 X10'3 (0-0.2); BASOPHILS % (AUTO) 0.7 % (0-1); EOSINOPHILS # (AUTO) 0.8 X10'3 (0-0.9); EOSINOPHILS % (AUTO) 10.3 % (0-6); HEMATOCRIT 42.2 % (35.0-45.0); HEMOGLOBIN 14.3 g/dl (12.0-16.0); LYMPHOCYTES # (AUTO) 2.7 X10'3 (1.1-4.8); LYMPHOCYTES % (AUTO) 35.9 % (21-51); MEAN CORPUSCULAR HEMOGLOBIN 31.4 PG (27.0-31.0); MEAN CORPUSCULAR HGB CONC 33.8 g/dL (33.0-36.5); MEAN CORPUSCULAR VOLUME 92.8 FL (78-98); MEAN PLATELET VOLUME 7.5 FL (7.4-10.4); MONOCYTES # (AUTO) 0.6 X10'3 (0-0.9); MONOCYTES % (AUTO) 8.1 % (2-12); NEUTROPHILS # (AUTO) 3.4 X10'3 (1.8-7.7); PLATELET COUNT 309 X10'3 (140-440); RED BLOOD COUNT 4.55 X10'6 (4.20-5.60); RED CELL DISTRIBUTION WIDTH 14.9 % (11.5-14.5); WHITE BLOOD COUNT 7.5 X10'3 (4.5-11.0)
[2023-12-05 02:06] LABS: LIPASE 39 U/L (16-77); POTASSIUM 3.4 MMOL/L (3.5-5.1); SODIUM 139 MMOL/L (135-145)
[2023-12-05 02:07] LABS: ALANINE AMINOTRANSFERASE 23 U/L (12-78); ALBUMIN 4.2 G/DL (3.4-5.0); ALBUMIN/GLOBULIN RATIO 1.1 (1.1-1.5); ALKALINE PHOSPHATASE 80 IU/L (46-116); ANION GAP 10 (8-16); ASPARTATE AMINO TRANSFERASE 18 U/L (10-37); BILIRUBIN,TOTAL 0.4 MG/DL (0.1-1.0); BLOOD UREA NITROGEN 22 MG/DL (7-18); BUN/CREATININE RATIO 25.9 (10.0-20.0); CALCIUM 10.7 MG/DL (8.5-10.1); CHLORIDE 100 MMOL/L (99-107); CREATININE 0.85 MG/DL (0.40-0.90); GLUCOSE 100 MG/DL (70-104); TOTAL CARBON DIOXIDE 28.6 MMOL/L (24-32); TOTAL PROTEIN 7.9 G/DL (6.4-8.2); eCRCL 63 ML/MIN; eGFR 68 ML/MIN
[2023-12-05] MEDS ORDERED: ONDA4TAB12 PO (02:32)
== END 2023-12-05 04:47 | disposition home or self-care (01) ==
LOC: ER 01:22
DX: R11.2 Nausea with vomiting, unspecified (principal); R00.0 Tachycardia, unspecified
CPT/HCPCS: 36415; 80053; 83690; 85025; 93005; 96361; 96374; 99284; J2405; J7030

== ENCOUNTER 2023-12-28 06:30 | Outpatient (CLI) | payer BC ==
[2023-12-28 06:54] LABS: BILIRUBIN,URINE SMALL (Neg); CLARITY,URINE CLOUDY (Clear); COLOR,URINE YELLOW (Yellow); GLUCOSE, URINE NEGATIVE (Neg); KETONES,URINE >=80 mg/dl (Neg); LEUKOCYTE ESTERASE ,URINE MODERATE (Neg); NITRITES, URINE NEGATIVE (Neg); OCCULT BLOOD,URINE LARGE (Neg); PROTEIN,URINE 100 mg/dl (Neg); UROBILINOGEN,URINE 0.2 E.U/dL (0.2-1.0)
[2023-12-28 07:06] LABS: UA COLLECTION TYPE CLN CATCH MIDSTREAM
[2023-12-28 07:12] LABS: WBC CLUMPS,URINE MANY /HPF (NEGATIVE); WBC,URINE TNTC /HPF (0-4)
[2023-12-28 07:18] LABS: BACTERIA,URINE 3+ /HPF (Neg); CAL OXALATE CRYSTALS 2+ /HPF (NEGATIVE); SQUAMOUS EPITHELIAL CELL,UR MODERATE /LPF (FEW)
[2023-12-28 07:19] LABS: TRANSITIONAL EPI CELLS,URINE FEW /HPF
== END 2023-12-28 23:59 | disposition home or self-care (01) ==
LOC: LAB 06:30
PROVIDERS: ATTEND Family Medicine
DX: N39.0 Urinary tract infection, site not specified (principal)
CPT/HCPCS: 81001; 87077; 87088; 87186

== ENCOUNTER 2024-03-22 07:27 | Day surgery (SDC) | payer BC ==
[~2024-03-22] VITALS: Ht 165.1 cm; Wt 59.5 kg
[2024-03-22] MEDS ORDERED: TIRZ7.5P (07:42)
[2024-03-22 07:44] VITALS: BP 118/66; PULSE 69; RESP 14
[2024-03-22] MEDS ORDERED: fentaNYL/PF 50MCG/1 ML 2ML syringe ONE (08:33)
[2024-03-22] MEDS ORDERED: MIDAZolam 1 MG/ML 5ML VIAL ONE (08:34)
[2024-03-22] MEDS ORDERED: diphenhydrAMINE 50 mg/ml inj ONE (08:34)
[2024-03-22 09:12] VITALS: BP 90/57; PULSE 86; RESP 14; O2SAT 96
[2024-03-22 09:22] VITALS: BP 90/61; PULSE 82; RESP 16; O2SAT 97
[2024-03-22 09:32] VITALS: BP 91/57; PULSE 81; RESP 14; O2SAT 95
[2024-03-22 09:42] VITALS: BP 100/54; PULSE 83; RESP 14; O2SAT 97
== END 2024-03-22 09:51 | disposition home or self-care (01) ==
LOC: GI LAB 07:27
PROVIDERS: ATTEND Internal Medicine Gastroenterology
DX: Z12.11 Encounter for screening for malignant neoplasm of colon (principal); Z80.0 Family history of malignant neoplasm of digestive organs
CPT/HCPCS: 45378; 99152; J1200; J2250; J3010; J7030; Z7512; 99153; A4620

== ENCOUNTER 2025-03-28 09:39 | Outpatient (CLI) | payer BC ==
[~2025-03-28 09:39] MED LIST changes: -CEPH-585 PO; -CIPR-202 PO; -METR-159 PO; -NIRM1TAB PO; -ONDA4TAB12 PO; +TIRZ7.5P
[2025-03-28 10:26] LABS: BASOPHILS % (AUTO) 1.1 % (0-1); EOSINOPHILS # (AUTO) 0.2 X10'3 (0-0.9); EOSINOPHILS % (AUTO) 4.1 % (0-6); HEMATOCRIT 36.9 % (35.0-45.0); HEMOGLOBIN 12.5 g/dl (12.0-16.0); LYMPHOCYTES # (AUTO) 1.6 X10'3 (1.1-4.8); LYMPHOCYTES % (AUTO) 41.8 % (21-51); MEAN CORPUSCULAR HEMOGLOBIN 31.5 PG (27.0-31.0); MEAN CORPUSCULAR VOLUME 92.9 FL (78-98); MONOCYTES # (AUTO) 0.4 X10'3 (0-0.9); MONOCYTES % (AUTO) 9.1 % (2-12); NEUTROPHILS # (AUTO) 1.7 X10'3 (1.8-7.7); NEUTROPHILS % (AUTO) 43.9 % (42-75); PLATELET COUNT 253 X10'3 (140-440); RED BLOOD COUNT 3.97 X10'6 (4.20-5.60); RED CELL DISTRIBUTION WIDTH 14.8 % (11.5-14.5); WHITE BLOOD COUNT 3.9 X10'3 (4.5-11.0)
[2025-03-28 10:50] LABS: ALANINE AMINOTRANSFERASE 21 U/L (12-78); ALBUMIN/GLOBULIN RATIO 1.5 (1.1-1.5); ALKALINE PHOSPHATASE 50 IU/L (46-116); ANION GAP 5 (8-16); ASPARTATE AMINO TRANSFERASE 21 U/L (10-37); BILIRUBIN,TOTAL 0.5 MG/DL (0.1-1.0); BLOOD UREA NITROGEN 19 MG/DL (7-18); BUN/CREATININE RATIO 22.9 (10.0-20.0); CALCIUM 9.1 MG/DL (8.5-10.1); CHLORIDE 106 MMOL/L (99-107); CHOL/HDL RATIO 2.8 (0.00-4.99); CHOLESTEROL 237 MG/DL (0-200); CREATININE 0.83 MG/DL (0.40-0.90); GLUCOSE 77 MG/DL (70-104); HDL CHOLESTEROL 85 MG/DL (35-60); LDL CHOLESTEROL 131 MG/DL (50-100); POTASSIUM 3.9 MMOL/L (3.5-5.1); SODIUM 140 MMOL/L (135-145); THYROID STIMULATING HORMONE 3.32 ulU/ml (0.34-4.50); TOTAL CARBON DIOXIDE 28.9 MMOL/L (24-32); TOTAL PROTEIN 6.7 G/DL (6.4-8.2); TRIGLYCERIDES 39 MG/DL (20-135); eGFR 69 ML/MIN
== END 2025-03-28 23:59 | disposition home or self-care (01) ==
LOC: LAB 09:39
PROVIDERS: ATTEND Family Medicine
DX: Z00.01 Encounter for general adult medical examination with abnormal findings (principal)
CPT/HCPCS: 36415; 80053; 80061; 84443; 85025

== ENCOUNTER 2025-05-01 08:39 | Outpatient (CLI) | payer BC ==
--- NOTE | 2025-05-01 10:55 | VASCULAR REPORT ---
Carotid Duplex Date: 05/01/2025 08:47 AM Clinical History: Loss of vision Comparison: None Technique: Duplex Doppler evaluation of the extracranial carotid and vertebral arteries including col or Doppler and spectral/pulsed waveform analysis was performed. Findings: RIGHT SIDE: The peak systolic velocities are 81 cm/s in the distal CCA and 95 cm/s in the proximal ICA.The ICA/CC A ratio is 1.17. The external carotid artery is patent with peak systolic velocity of 78 cm/s proximally. There is appropriate antegrade flow in the right vertebral artery. The subclavian artery is patent with peak systolic velocity of 80 cm/s proximally. LEFT SIDE: The peak systolic velocities are 76 cm/s in the distal CCA and 109cm/s in the proximal ICA. The ICA /CCA ratio is 1.27. The external carotid artery is patent with peak systolic velocity of 65 cm/s proximally. The subclavian artery is patent with peak systolic velocity of 111 cm/s proximally. There is appropriate antegrade flow in the left vertebral artery. IMPRESSION: No hemodynamically significant stenosis noted in the right carotid system. No hemodynamically significant stenosis noted in the left carotid system. Reference: Radiology 2003; 229:[id number]
== END 2025-05-01 23:59 | disposition home or self-care (01) ==
LOC: VAS 08:39
PROVIDERS: ATTEND Family Medicine
DX: G45.9 Transient cerebral ischemic attack, unspecified (principal)
CPT/HCPCS: 93880